=== PATIENT | male | born 1975 | race African-American/Black ===

== ENCOUNTER 2021-01-16 10:46 | Observation (INO) ==
[2021-01-16 11:44] LABS: Basophils % 0.1 % (0.0-0.8); Eosinophils % 0.2 % (0.00-10.9); Hematocrit 43.8 VOL% (42.0-52.0); Hemoglobin 13.5 GM/DL (14.0-18.0); Immature Granulocytes % 0.5 %; Immature Granulocytes Absolute 0.07 #; Lymphocytes # 0.9 10*3/uL (1.4-4.0); Lymphocytes % 6.8 % (21.2-54.2); Mean Corpuscular HGB Conc 30.8 GM/DL (32-36); Mean Corpuscular Volume 71.6 FL (87-102); Neutrophils % 89.4 % (38.7-73.9); Platelet Count 228 T/CUMM (130-400); Red Blood Count 6.12 MC/CUMM (3.8-5.5); Red Cell Distribution Width 15.9 % (9.3-17.3); White Blood Count 13.4 T/CUMM (4-12)
[2021-01-16 12:03] LABS: Partial Thromboplastin Time 37.1 SECS (23.9-33.8)
[2021-01-16 12:31] LABS: Calcium 9.2 MG/DL (8.5-10.1); Osmolality,Calculated 272.8 MOS/KG (273-304); Potassium 4.3 MMOL/L (3.5-5.1)
[2021-01-16] MEDS ORDERED: ALBUTEROL/IPRATROPIUM 3 ML NEB RESP TX PRN (14:05)
[2021-01-16] MEDS ORDERED: GLUCAGON 1 MG VIAL IM PRN (14:05)
[2021-01-16] MEDS ORDERED: DEXTROSE 50% 25 GM/50 ML VIAL IV PRN (14:05)
[2021-01-16] MEDS ORDERED: ACETAMINOPHEN 325 MG TABLET PO PRN (14:08)
[2021-01-16] MEDS ORDERED: ONDANSETRON 4 MG/2 ML VIAL IV PRN (14:47)
[2021-01-16] MEDS ORDERED: DOCUSATE CALCIUM 240 MG CAPSULE PO PRN (14:47)
[2021-01-16] MEDS: RIVAROXABAN 15 MG TABLET PO SCH (20:57)
[2021-01-17 06:22] LABS: Basophils % 0.2 % (0.0-0.8); Eosinophils % 0.2 % (0.00-10.9); Hematocrit 40.8 VOL% (42.0-52.0); Hemoglobin 12.8 GM/DL (14.0-18.0); Immature Granulocytes % 0.9 %; Immature Granulocytes Absolute 0.12 #; Lymphocytes % 15.3 % (21.2-54.2); Mean Corpuscular HGB Conc 31.4 GM/DL (32-36); Mean Corpuscular Volume 71.2 FL (87-102); Mean Platelet Volume 8.8 FL (9.6-12.0); Monocytes % 8.3 % (1.7-12.7); Neutrophils % 75.1 % (38.7-73.9); Platelet Count 234 T/CUMM (130-400); Red Blood Count 5.73 MC/CUMM (3.8-5.5); Red Cell Distribution Width 15.2 % (9.3-17.3); White Blood Count 12.7 T/CUMM (4-12)
[2021-01-17] MEDS ORDERED: LEVOTHYROXINE 100 MCG TABLET PO SCH (06:30)
[2021-01-17 07:14] LABS: Bilirubin,Total 0.8 MG/DL (0.2-1.0); Calcium 8.7 MG/DL (8.5-10.1); Osmolality,Calculated 276.7 MOS/KG (273-304); Thyroid Stimulating Hormone 2.52 uIU/ml (0.358-3.74); Total Protein 7.3 G/DL (5.0-7.5)
[2021-01-17 07:58] VITALS: BP 143/80
[2021-01-17] MEDS: RIVAROXABAN 15 MG TABLET PO SCH (09:30)
== END 2021-01-17 10:16 | disposition home or self-care (01) ==
LOC: N.ED 10:46 → N.EDINP 10:46 → N.5E 16:26
PROVIDERS: ADMIT Internal Medicine; ATTEND Internal Medicine